=== PATIENT | female | born 1965 | race Caucasian/White ===

== ENCOUNTER 2016-11-13 08:11 | Emergency (ER) | payer MEDICAID ==
[~2016-11-13] VITALS: Ht 170.2 cm; Wt 147.5 kg
[~2016-11-13 08:11] MED LIST: MELO15 PO
[2016-11-13 08:16] VITALS: BP 139/65; PULSE 85; RESP 24; TEMP 97.7; O2SAT 97
--- NOTE | 2016-11-13 08:34 | PD ---
HPI Chief Complaint: Injury Time Seen by Provider: 08:26 Travel History International Travel<30 days: No Contact w/Intl Traveler<30days: No Traveled to known affect area: No History of Present Illness HPI 51-year-old female presents to the emergency Department with complaint of a blister to both feet since November 09. She said she went to a family reunion and a down in [place] and has been walking a lot and her shoes rubbing on her feet caused the 2 blisters. Denies paresthesias, loss of sensation, decreased range of motion, decreased strength to bilateral lower extremities. Denies fever, vomiting. The blisters have not drained and she is requesting them to be drained under sterile procedure. She said her primary care provider told her to come to the emergency department and requests the blisters be drained sterilely. Has not taken any medications or tried any treatments to alleviate her symptoms. Symptoms are mild in severity. Allergies to acetaminophen, oxycodone, penicillin, propoxyphene. Has no other medical complaints. No other modifying factors or associated signs and symptoms. History Past Medical Histgory Menopausal: Yes Social History Alcohol Use: No Tobacco Use: No Allergies-Medications (Allergen,Severity, Reaction): Coded Allergies: acetaminophen (Unverified Allergy, Unknown, 11/13/16) oxycodone (Unverified Allergy, Unknown, 11/13/16) penicillin G (Unverified Allergy, Unknown, 11/13/16) propoxyphene (Unverified Allergy, Unknown, 11/13/16) Reported Meds & Prescriptions Reported Meds & Active Scripts Active Mobic 15 Mg Tab (Meloxicam) 15 Mg Tab 15 Mg PO DAILY 14 Days Take with food, do not combine of other NSAIDs. Review of Systems Except as stated in HPI: all other systems reviewed are Neg Physical Exam Narrative GENERAL: Well-nourished, well-developed female patient, in no acute distress; afebrile, nontoxic-appearing SKIN: Warm and dry. Approximately 1 cm in diameter fluid filled blisters to bilateral feet to the lateral aspect of the heel; both without erythema, edema. No signs of infection. Bilateral lower extremities are supple and nontender with 2+ pedal pulses and sensory intact and without erythema or edema. HEAD: Atraumatic. Normocephalic. EYES: Pupils equal and round. No scleral icterus. No injection or drainage. ENT: Mucosa pink and moist. Airway patent. NECK: Trachea midline. CARDIOVASCULAR: Regular rate. RESPIRATORY: No accessory muscle use. GASTROINTESTINAL: Obese. MUSCULOSKELETAL: No obvious deformities. No clubbing. No cyanosis. No edema. NEUROLOGICAL: Awake and alert. Oriented 3. No obvious cranial nerve deficits. Motor grossly within normal limits. Normal speech. PSYCHIATRIC: Appropriate mood and affect; insight and judgment normal. Data Data Last Documented VS Vital Signs Date Time Temp Pulse Resp B/P (MAP) Pulse Ox O2 Delivery O2 Flow Rate FiO2 11/13/16 08:16 97.7 85 24 139/65 (89) 97 Room Air MDM Medical Screen Exam Complete: Yes Emergency Medical Condition: No Differential Diagnosis Blister of both feet Narrative Course 51-year-old female with a fluid-filled blister to both feet. No signs of infection. Patient is afebrile and nontoxic-appearing. She is ambulatory with a normal gait. Vital signs are stable and the patient is stable for outpatient follow-up and treatment. The patient has no urgent or emergent medical complaints. There is no emergent or urgent medical need at this time. I instructed the patient to follow up with their primary care provider. A medical screening exam was performed: At the time of evaluation the presenting medical condition was determined not to be of an emergent nature. The patient was given the option of receiving additional care, but declined. Patient was given options for additional community resources from which to obtain care. The Patient Has Been advised to seek medical attention for their presenting complaint. The patient has been advised to return to the ER at any time if an emergent condition develops. Primary Impression: Encounter for medical screening examination Condition: Stable Isha Adler [facility] Nov 13, 2016 08:34
== END 2016-11-13 08:42 | disposition left against medical advice (07) ==
LOC: NEPK 08:11
DX: S90.822A Blister (nonthermal), left foot, initial encounter (principal); S90.821A Blister (nonthermal), right foot, initial encounter
CPT/HCPCS: 99281